=== PATIENT | female | born 1985 | race Hispanic/Latino ===

== ENCOUNTER 2024-12-16 11:04 | Observation (INO) ==
[2024-12-16] MEDS ORDERED: 0.9 % SODIUM CHLORIDE 1000 ML 1,000 ML IV ONE (11:12)
[2024-12-16] MEDS: 0.9 % SODIUM CHLORIDE 1000 ML 1,000 ML IV STA (11:19)
--- NOTE | 2024-12-16 11:25 | Emergency Department Note ---
HPI - Nausea/Vomiting/Diarrhea General Chief complaint: Abdominal Pain Stated complaint: ABD PAIN Time Seen by Provider: 12/16/24 11:14 Source: patient Mode of arrival: ambulance Limitations: no limitations History of Present Illness HPI Narrative: 39-year-old female presents to ER with complaint of nausea vomiting diarrhea x 1 day with new onset stuttering that patient is unable to control. Patient has no other neurological deficits, denies headache, and reports diffuse abdominal pain on palpation of the abdomen. MD elicited complaint: Reports nausea, vomiting, diarrhea, abdominal pain and other (new onset stuttering) Pertinent past history: Reports other (diabetes) Onset (ago): day(s) (1) Description of vomiting: Reports watery Description of diarrhea: Reports watery Associated nausea: Yes Associated abdominal pain: Yes Location of pain: Reports diffuse Radiation: Reports diffuse Pain consistency: Reports constant Severity: moderate Quality: Reports cramping, aching, sharp and constant Exacerbating factors: Reports eating, vomiting, movement, standing and exertion Relieving factors: Reports none Context: Reports new medication Associated symptoms: Reports myalgias, loss of appetite, malaise, nausea /vomiting, weakness, anxiety and other (abdominal pain, stuttering) Treatment prior to arrival: Reports none Related Data Home Medications Medication Instructions Recorded Confirmed glimepiride 2 mg tablet 2 mg PO BIDWM 12/16/24 12/16/24 metformin 500 mg tablet,extended 1,000 mg PO DAILY 12/16/24 12/16/24 release 24 hr pioglitazone 30 mg tablet 30 mg PO DAILY 12/16/24 12/16/24 Allergies Allergy/AdvReac Type Severity Reaction Status Date / Time Penicillins Allergy Verified 12/16/24 14:22 Review of Systems Status of ROS 10 or more systems reviewed and unremark able except as noted in history and below Constitutional Reports: fatigue; Denies: fever, chills, change in weight, malaise, night sweats, change in sleep pattern or other Eyes Denies: change in vision, blurry vision, blind spots, light sensitivity, eye discomfort, eye discharge, dry eyes, increased production of tears, floaters, seeing flashes or decreased night vision Ears, nose, mouth, and throat Denies: throat pain, neck pain, throat swelling, difficulty swallowing, hoarseness, mouth pain, swelling of lips/tongue, dry mouth, bad breath, ear pain, ear discharge, change in hearing, tinnitus, vertigo, nasal discharge, nasal congestion, nose bleeds or post nasal drip Cardiovascular Denies: chest pain, palpitations, edema, swelling of feet/ankles, lightheadedness, shortness of breath with exertion, shortness of breath when lying down, leg pain with exertion or bluish discoloration of hands/feet Respiratory Denies: shortness of breath, cough, wheezing, stridor, pain on inspiration, change in phlegm color, coughing up blood or chest congestion Gastrointestinal Reports: abdominal pain, nausea, vomiting and diarrhea; Denies: coffee grounds in vomit, heartburn, constipation, bloating, belching, excessive passing of gas, difficulty swallowing, feeling full early, change in bowel habits, painful bowel movements, rectal pain, rectal swelling, rectal itching, change in stool character, blood in stool, mucus in stool, white/light colored stool or fatty stool Genitourinary Denies: painful urination, urinary frequency, urinary urgency, urinary incontinence, blood in urine, difficulty voiding, decreased urine ouput, pelvic pain, painful menstruation, vaginal bleeding, vaginal discharge, irregular period, change in menstrual flow, absence of menstruation, genital lesion, genital itching, vaginal dryness, vaginal odor, pain during intercourse, difficulty conceiving or change in libido Musculoskeletal Reports: muscle weakness; Denies: back pain, neck pain, extremity pain, extremity swelling, joint pain, limited range of motion, joint swelling, muscle cramps or loss of height Integumentary/Breast Denies: rash, itching, redness, skin pain, skin tenderness, skin swelling, sores, new lesion, changing lesion, non-healing lesion, changes in skin color, jaundice, stretch jaimes, acne, nail changes, change in hair, breast pain, breast swelling, nipple discharge, breast mass, breast skin changes or change in breast shape Neurological Reports: weakness in extremities; Denies: headache, numbness in extremities, lack of coordination, dizziness, vertigo, confusion, behavioral changes, slurred speech, difficulty communicating thoughts, seizure-like activity or involuntary movements Psychiatric Reports: anxiety; Denies: mood swings, panic attacks, change in sleep pattern, hopelessness, loss of interest, irritability, paranoia, memory loss, difficulty concentrating, visual hallucinations, auditory hallucinations, tactile hallucinations, suicidal ideation or homicidal ideation Endocrine Reports: fatigue; Denies: excessive urination, excessive thirst, cold intolerance, excessive sweating, flushing, heat intolerance, deepening of the voice, change in body appearance or change in libido Hematologic/Lymphatic Denies: easy bruising, easy bleeding or enlarged lymph nodes Allergic/Immunologic Denies: hives, throat swelling, tongue swelling, facial swelling, wheezing, itchy eyes, seasonal allergies or food intolerance PFSH PFSH Medical History (Updated 12/16/24 @ 16:38 by Maria Esther Gerardo NP) Diabetes Social History What is your current living situation: I presently have a place to live Problems where you live: no known problems Highest level of school completed/degree received: high school Feel stressed/tense/nervous/anxious/difficulty sleeping: rather much Life stressors: other (none) Life stressor details: current medical situation Due to disability, difficulty making decisions: No Exam Constitutional: normal general appearance, distress noted (moderate), abnormal body habitus (obese), no limitations and alert Vital Signs - 24 hr 12/16/24 11:13 12/16/24 12:30 12/16/24 13:00 Temperature 98.1 F Pulse Rate 108 H 112 H 92 H Respiratory Rate 20 20 16 Blood Pressure 162/96 139/88 129/85 Pulse Oximetry 96 96 [facility] 12/16/24 13:30 12/16/24 14:00 Temperature Pulse Rate 95 H 94 H Respiratory Rate 16 16 Blood Pressure 141/89 107/72 Pulse Oximetry 96 [facility] HENMT: normocephalic, head/scalp atraumatic, hearing grossly normal bilaterally, external ears normal, external nose normal, oral mucous membranes normal, oropharynx normal, dentition normal and gingiva normal Eyes: PERRL, EOMs intact bilaterally, conjunctivae normal, no scleral icterus, no papilledema, normal visual hodgson by confrontation, alignment normal, periorbital findings normal and no nystagmus Neck/C-Spine: visual inspection normal, trachea midline, cervical spine nontender, cervical full ROM noted and supple Lymph: no lymphadenopathy noted and no lymphedema noted Chest: inspection of chest normal, inspection of breast(s) abnormal (deferred) and palpation of breast(s) abnormal (deferred) Respiratory: breath sounds equal bilaterally, normal respiratory effort, clear to auscultation bilaterally, no wheezes, no rales, no retractions and no use of accessory muscles Cardiovascular: normal heart rate noted, regular rhythm noted, no gallop, no JVD, peripheral pulses 2+ throughout and no additional abnormal heart sounds Gastrointestinal: abdomen normal to inspection, abdomen soft to palpation, tender to palpation (diffuse) (moderate), nondistended, normoactive bowel sounds, no hepatosplenomegaly, no masses, no pulsatile mass, no ascites, no hernia and rectal exam abnormal (deferred) Genitourinary: no CVA tenderness, bladder normal to palpation, vaginal abnormality noted (deferred) and cervical abnormality noted (deferred) Back/Pelvis: spine normal to inspection Extremities: normal to inspection, normal to palpation, no tenderness, full ROM, no joint enlargement and no deformity Neurology: property specialist II-XII intact, no movement abnormality noted, no focal motor deficit noted, no sensory deficits noted, gait normal, speech normal, coordination normal, no pronator drift noted, no fasciculations noted and GCS normal Patient has new onset stuttering which family reports she has never had before. Psychiatry: Mental Status Exam documented within this Exam's Psych section mental status grossly normal, oriented x3, thought process normal, cooperative, affect normal, psychomotor activity normal and memory normal Feel stressed/tense/nervous/anxious/difficulty sleeping: rather much Life stressors: other (none) Life stressor details: current medical situation Due to disability, difficulty making decisions: No Skin: skin color abnormal Reports (pale), no rash, no lesions, no ecchymosis noted, no wounds, no lacerations, skin turgor normal, no jaundice, no petechiae, no mottling, nails normal and no alopecia Course Course Hospital Course: 39-year-old female that presented to ER via EMS with complaint of nausea vomiting and diarrhea x 1 day with new onset stuttering which began approximately 20 minutes prior to arrival in ER has been evaluated by physical exam, CBC, CMP, urinalysis, magnesium, urine drug screen, swabs for flu and COVID, CT of the brain, CT of the abdomen pelvis with contrast, and plain film chest x-ray with results as noted in charting. Patient's lab work reveals patient to be hyperglycemic with a One Touch glucose reading of 309 mg/[place], elevated liver functions with AST of 42 and ALT of 66, hyponatremia with a sodium of 135, leukocytosis with a white count of 12.1, patient's CT of the head reveals no acute intercranial issue, patient's chest x-ray shows no acute cardiopulmonary process, and patient CT abdomen pelvis shows gastroenteritis. Patient will be admitted to the [facility] floor for intractable nausea and vomiting, hyperglycemia, elevated liver function test, hyponatremia, and leukocytosis with rehydration with normal saline, nausea and vomiting control, and antibiotic therapy for leukocytosis. Patient and family have been advised of treatment pathway and agree with it at this time. Vital Signs Vital signs: Vital Signs Temperature 98.1 F 12/16/24 11:13 Pulse Rate 108 H 12/16/24 11:13 Respiratory Rate 20 12/16/24 11:13 Blood Pressure 162/96 12/16/24 11:13 Pulse Oximetry 96 12/16/24 11:13 Oxygen Delivery Method Room Air 12/16/24 11:13 Temperature 98.5 F 12/16/24 23:59 Pulse Rate 104 H 12/16/24 23:59 Respiratory Rate 18 12/16/24 23:59 Blood Pressure 127/51 12/16/24 23:59 Pulse Oximetry 97 12/16/24 23:59 Oxygen Delivery Method Room Air 12/16/24 23:59 Discharge Plan Discharge Patient Disposition: Admitted As Observation Condition: Improved Clinical Impression: Gastroenteritis, Abdominal pain, Intractable vomiting with nausea, Hyperglycemia, Leukocytosis, Elevated liver function tests, Hyponatremia Interventions: ED Discharge Assessment Last Done: 12/16/24 14:55 ED Discharge Vital Sign Last Done: 12/16/24 14:55 Emergency Department Charge Sheet Last Done: 12/16/24 14:55 Time of Disposition: 13:30 Discharge Date/Time: 12/16/24 14:55
[2024-12-16 11:32] LABS: Basophils%(Percent) Auto 0.3 (0.1-0.85); Eosinophils#(Absolute)Auto 0.2 (0.0-0.2); Eosinophils%(Percent) Auto 1.4 % (0.4-2.8); Granulocytes % - Auto 83.8 % (47.8-71.3); Granulocytes#(Absolute)- Auto 10.1 (2.3-6.0); Hematocrit 40.1 % (35.9-46.7); Monocytes #(Absolute)- Auto 0.6 (1.1-3.1); Monocytes %(Percent)- Auto 5.1 % (3.6-9.8); Platelet Count 327 K/uL (152-353); White Blood Count 12.1 K/uL (4.3-9.3)
[2024-12-16 11:57] LABS: Potassium 4.4 mmol/L (3.6-5.2)
[2024-12-16 11:59] LABS: Urine Appearance CLEAR (CLEAR); Urine Color YELLOW (STRAW/YELL.)
[2024-12-16 12:00] LABS: Urine Blood 4+ (NEG - TRACE); Urine Urobilinogen Normal (NORMAL)
[2024-12-16] MEDS ORDERED: MAGNESIUM SULFATE 1 GM/2 ML VIAL ONE (12:01)
[2024-12-16 12:02] LABS: Urine Amorphous Sediment Negative (Negative); Urine Yeast Negative (Negative)
[2024-12-16] MEDS ORDERED: 0.9 % SODIUM CHLORIDE 100ML 100 ML IV ONE (12:03)
[2024-12-16] MEDS: MAGNESIUM SULFATE 1 GM/2 ML 1 GM in 0.9 % SODIUM CHLORIDE 100ML 100 ML IV ONE (12:05)
[2024-12-16 13:09] LABS: Amphetamine Screen Urine NEG. (NEGATIVE); Cannabinoid Screen Urine NEG. (NEGATIVE); Cocaine Screen Urine NEG. (NEGATIVE); Methadone Screen Urine NEG. (NEGATIVE); Opiate Screen Urine NEG. (NEGATIVE)
[2024-12-16] MEDS ORDERED: DOCUSATE SODIUM 100 MG CAPSULE PO PRN (14:22)
[2024-12-16] MEDS ORDERED: ACETAMINOPHEN 500 MG TABLET PO PRN (14:22)
[2024-12-16] MEDS: 0.9 % SODIUM CHLORIDE 1000 ML 1,000 ML IV SCH (15:12)
[2024-12-16] MEDS: ONDANSETRON HCL/PF 4 MG/2 ML VIAL IVP ONE (15:57)
--- NOTE | 2024-12-16 16:35 | History & Physical Report ---
H&P: HPI History of Present Illness Chief complaint: HYPERGLYCEMIA,GASTROENTERITIS,INTRACTABLE N/V, NATHALIA Narrative: 39 year old female here for n/v/d x 1 day. She reports >10 bowel movements today that were water mixed with solid. She has some pain across the upper abdomen. States she took Ozempic for first time this week and thinks it is causing symptoms. She was on it several months ago and had same problems at that time. Deneis headache, dizziness, chest pain, cough, sob, fever, chills, night sweats. Review of Systems Constitutional Reports: fatigue; Denies: fever, chills, change in weight, malaise, night sweats, change in sleep pattern or other Eyes Denies: change in vision, blurry vision, blind spots, light sensitivity, eye discomfort, eye discharge, dry eyes, increased production of tears, floaters, seeing flashes or decreased night vision Ears, nose, mouth, and throat Denies: throat pain, neck pain, throat swelling, difficulty swallowing, hoarseness, mouth pain, swelling of lips/tongue, dry mouth, bad breath, ear pain, ear discharge, change in hearing, tinnitus, vertigo, nasal discharge, nasal congestion, nose bleeds or post nasal drip Cardiovascular Denies: chest pain, palpitations, edema, swelling of feet/ankles, lightheadedness, shortness of breath with exertion, shortness of breath when lying down, leg pain with exertion or bluish discoloration of hands/feet Respiratory Denies: shortness of breath, cough, wheezing, stridor, pain on inspiration, change in phlegm color, coughing up blood or chest congestion Gastrointestinal Reports: abdominal pain, nausea, vomiting and diarrhea; Denies: coffee grounds in vomit, heartburn, constipation, bloating, belching, excessive passing of gas, difficulty swallowing, feeling full early, change in bowel habits, painful bowel movements, rectal pain, rectal swelling, rectal itching, change in stool character, blood in stool, mucus in stool, white/light colored stool or fatty stool Genitourinary Denies: painful urination, urinary frequency, urinary urgency, urinary incontinence, blood in urine, difficulty voiding, decreased urine ouput, pelvic pain, painful menstruation, vaginal bleeding, vaginal discharge, irregular period, change in menstrual flow, absence of menstruation, genital lesion, genital itching, vaginal dryness, vaginal odor, pain during intercourse, difficulty conceiving or change in libido Musculoskeletal Reports: muscle weakness; Denies: back pain, neck pain, extremity pain, extremity swelling, joint pain, limited range of motion, joint swelling, muscle cramps or loss of height Integumentary/Breast Denies: rash, itching, redness, skin pain, skin tenderness, skin swelling, sores, new lesion, changing lesion, non-healing lesion, changes in skin color, jaundice, stretch jaimes, acne, nail changes, change in hair, breast pain, breast swelling, nipple discharge, breast mass, breast skin changes or change in breast shape Neurological Reports: weakness in extremities; Denies: headache, numbness in extremities, lack of coordination, dizziness, vertigo, confusion, behavioral changes, slurred speech, difficulty communicating thoughts, seizure-like activity or involuntary movements Psychiatric Reports: anxiety; Denies: mood swings, panic attacks, change in sleep pattern, hopelessness, loss of interest, irritability, paranoia, memory loss, difficulty concentrating, visual hallucinations, auditory hallucinations, tactile hallucinations, suicidal ideation or homicidal ideation Endocrine Reports: fatigue; Denies: excessive urination, excessive thirst, cold intolerance, excessive sweating, flushing, heat intolerance, deepening of the voice, change in body appearance or change in libido Hematologic/Lymphatic Denies: easy bruising, easy bleeding or enlarged lymph nodes Allergic/Immunologic Denies: hives, throat swelling, tongue swelling, facial swelling, wheezing, itchy eyes, seasonal allergies or food intolerance [facility] Medical History (Updated 12/16/24 @ 16:38 by Maria Esther Gerardo NP) Diabetes Social History What is your current living situation: I presently have a place to live Problems where you live: no known problems Highest level of school completed/degree received: high school Feel stressed/tense/nervous/anxious/difficulty sleeping: rather much Life stressors: other (none) Life stressor details: current medical situation Due to disability, difficulty making decisions: No Meds Home Medications and Allergies Allergies Allergy/AdvReac Type Severity Reaction Status Date / Time Penicillins Allergy Verified 12/16/24 14:22 Exam Constitutional: normal general appearance, no apparent distress, average body habitus and no limitations Vital Signs - 24 hr 04/18/25 11:13 12/16/24 12:30 12/16/24 13:00 Temperature 98.1 F Pulse Rate 108 H 112 H 92 H Pulse Rate [Right Brachial] Respiratory Rate 20 20 16 Blood Pressure 162/96 139/88 129/85 Blood Pressure [Ri ght Arm] Pulse Oximetry 96 96 96 Oxygen Delivery Me thod Room Air Room Air 12/16/24 13:30 12/16/24 14:00 12/16/24 14:55 Temperature 98.1 F Pulse Rate 95 H 94 H 94 H Pulse Rate [Right Brachial] Respiratory Rate 16 16 16 Blood Pressure 141/89 107/72 107/72 Blood Pressure [Ri ght Arm] Pulse Oximetry 96 96 96 Oxygen Delivery Me thod Room Air Room Air 12/16/24 15:42 12/16/24 16:14 Temperature 98.5 F 98.4 F Pulse Rate Pulse Rate [Right Brachial] 100 H 101 H Respiratory Rate 19 19 Blood Pressure Blood Pressure [Ri ght Arm] 117/74 113/74 Pulse Oximetry 95 97 Oxygen Delivery Me thod Room Air Room Air HENMT: normocephalic and head/scalp atraumatic Eyes: EOMs intact bilaterally, conjunctivae normal and no scleral icterus Neck/C-Spine: visual inspection normal Lymph: no lymphadenopathy noted and no lymphedema noted Chest: inspection of chest normal Respiratory: breath sounds equal bilaterally, normal respiratory effort, clear to auscultation bilaterally, no wheezes, no rales, no retractions and no use of accessory muscles Cardiovascular: normal heart rate noted, regular rhythm noted, no gallop, no rub, no murmur and no JVD Gastrointestinal: abdomen normal to inspection, abdomen soft to palpation and nontender to palpation Back/Pelvis: spine normal to inspection and no thoracic spine tenderness Extremities: normal to inspection, normal to palpation, no tenderness, full ROM and no joint enlargement Neurology: timber sizer II-XII intact, no movement abnormality noted, speech normal and coordination normal Psychiatry: mental status grossly normal, oriented x3, thought process normal, cooperative and affect normal Skin: skin color normal, no rash and no lesions Assessment and Plan Assessment and Plan (1) Nausea: Code(s): R11.0 - Nausea (2) Vomiting: Qualifiers: Nausea presence: with nausea Vomiting type: unspecified Qualified Code(s): R11.2 - Nausea with vomiting, unspecified Code(s): R11.10 - Vomiting, unspecified (3) Diarrhea: Qualifiers: Diarrhea type: unspecified type Qualified Code(s): R19.7 - Diarrhea, unspecified Code(s): R19.7 - Diarrhea, unspecified (4) Transaminitis: Code(s): R74.01 - Elevation of levels of liver transaminase levels (5) Diabetes: Qualifiers: Diabetes mellitus complication status: without complication Diabetes mellitus rn long term care insulin use: without penitentiary use Diabetes mellitus type: type 2 Qualified Code(s): E11.9 - Type 2 diabetes mellitus without compl ications Code(s): E11.9 - Type 2 diabetes mellitus without complications Plan Continue IV Fluid rehydration OTBS with SSI AC/HS CBC, CMP in am Enoxaparin Zofran prn for nausea Protonix Morphine prn for pain Results Labs Labs: CBC 12/16/24 Range/Units 11:20 WBC 12.1 H (4.3-9.3) K/uL RBC 4.8 (4.00-5.50) M/uL Hgb 13.2 (12.5-15.8) gm/dL Hct 40.1 (35.9-46.7) % Plt Count 327 (152-353) K/uL Gran % 83.8 H (47.8-71.3) % Lymph % (Auto) 9.4 L (20.0-43.0) % [place] % (Auto) 5.1 (3.6-9.8) % Eos % (Auto) 1.4 (0.4-2.8) % Baso % (Auto) 0.3 (0.1-0.85) Lymph # (Auto) 1.1 (1.1-3.1) [place] # (Auto) 0.6 L (1.1-3.1) Eos # (Auto) 0.2 (0.0-0.2) Baso # (Auto) 0.0 (0.0-0.1) Absolute Gran (auto) 10.1 H (2.3-6.0) CMP 12/16/24 11:20 Sodium 135 L Potassium 4.4 Chloride 101.0 Carbon Dioxide 25 BUN 12 Creatinine 0.8 Glucose 290 H Calcium 8.7 Liver Function 12/16/24 Range/Units 11:20 Total Bilirubin 0.43 (0.0-1.0) mg/dL AST 42 H (15-37) U/L ALT 66 H (30-65) U/L Alkaline Phosphatase 99 (50-136) U/L Albumin 3.0 L (3.4-5.0) g/dL Urine 12/16/24 11:53 Urine Color Yellow Urine Appearance Clear Ur Specific [place] 1.020 Urine Protein 2+ Urine Glucose (UA) 3+
[2024-12-16] MEDS: PANTOPRAZOLE SODIUM 40 MG VIAL IVP SCH (16:40)
[2024-12-16] MEDS: KETOROLAC 30 MG/ML INJ VIAL IVP PRN (17:54)
[2024-12-16] MEDS: PROMETHAZINE HCL 25 MG in 0.9 % SODIUM CHLORIDE 50 ML IV PRN (21:58)
[2024-12-17] MEDS: ONDANSETRON HCL/PF 4 MG/2 ML VIAL INJ PRN (01:33)
[2024-12-17] MEDS: MORPHINE SULFATE 4 MG/ML CARTRIDGE IV PRN (01:34)
[2024-12-17 05:51] LABS: Basophils%(Percent) Auto 0.5 (0.1-0.85); Eosinophils#(Absolute)Auto 0.2 (0.0-0.2); Eosinophils%(Percent) Auto 2.3 % (0.4-2.8); Granulocytes % - Auto 72.5 % (47.8-71.3); Granulocytes#(Absolute)- Auto 5.9 (2.3-6.0); Hematocrit 36.4 % (35.9-46.7); Mean Corpuscular Volume 83.8 fl (81.0-93.7); Monocytes #(Absolute)- Auto 0.5 (1.1-3.1); Platelet Count 240 K/uL (152-353); White Blood Count 8.2 K/uL (4.3-9.3)
[2024-12-17] MEDS: ENOXAPARIN SODIUM 40 MG/0.4 ML SYRINGE SUBQ SCH (08:13)
[2024-12-17] MEDS: diphenhydrAMINE HCL 50 MG/ML VIAL INJ PRN (12:05)
[2024-12-17] MEDS: LORazepam 0.5 MG TABLET PO PRN (12:05)
--- NOTE | 2024-12-17 12:51 | Progress Note ---
Progress Note: Subjective Subjective Interval history: Patient states she is having loose stools still. She is having episode of stuttering which is new. Continued upper abdominal pain. Continued nausea. At 1300 patient complained of chest pain, sob while having stuttering episode. Workup negative. AU consulted. New orders noted.. Exam Exam: stuttering words, no neurological deficit identified. Constitutional: normal general appearance, no apparent distress, average body habitus, no limitations and alert Vital Signs - 24 hr 12/16/24 13:00 12/16/24 13:30 12/16/24 14:00 Temperature Pulse Rate 92 H 95 H 94 H Pulse Rate [Right Brachial] Respiratory Rate 16 16 16 Blood Pressure 129/85 141/89 107/72 Blood Pressure [Ri ght Arm] Pulse Oximetry 96 96 96 Oxygen Delivery Dc thod Room Air Room Air Room Air 12/16/24 14:55 12/16/24 15:42 12/16/24 16:14 Temperature 98.1 F 98.5 F 98.4 F Pulse Rate 94 H Pulse Rate [Right Brachial] 100 H 101 H Respiratory Rate 16 19 19 Blood Pressure 107/72 Blood Pressure [Ri ght Arm] 117/74 113/74 Pulse Oximetry 96 95 97 Oxygen Delivery Dc thod Room Air Room Air 12/16/24 19:47 12/16/24 23:59 12/17/24 04:10 Temperature 98.5 F 98.5 F 97.9 F Pulse Rate Pulse Rate [Right Brachial] 98 H 104 H 68 Respiratory Rate 17 18 18 Blood Pressure Blood Pressure [Ri ght Arm] 103/57 127/51 105/58 Pulse Oximetry 95 97 97 Oxygen Delivery Dc thod Room Air Room Air Room Air 12/17/24 08:00 12/17/24 11:51 Temperature 97.6 F 97.8 F Pulse Rate Pulse Rate [Right Brachial] 118 H 101 H Respiratory Rate 19 19 Blood Pressure Blood Pressure [Ri ght Arm] 133/80 126/69 Pulse Oximetry 95 95 [facility] Air HENMT: normocephalic, head/scalp atraumatic, hearing grossly normal bilaterally, external ears normal, external nose normal, oral mucous membranes normal, oropharynx normal, dentition normal and gingiva normal Eyes: PERRL, EOMs intact bilaterally, conjunctivae normal, no scleral icterus, no papilledema, normal visual hodgson by confrontation, alignment normal, periorbital findings normal and no nystagmus Neck/C-Spine: visual inspection normal, trachea midline, cervical spine nontender, cervical full ROM noted and supple Lymph: no lymphadenopathy noted and no lymphedema noted Chest: inspection of chest normal, inspection of breast(s) abnormal (deferred) and palpation of breast(s) abnormal (deferred) Respiratory: breath sounds equal bilaterally, normal respiratory effort, clear to auscultation bilaterally, no wheezes, no rales, no retractions and no use of accessory muscles Cardiovascular: normal heart rate noted, regular rhythm noted, no gallop, no rub, no murmur, no JVD, peripheral pulses 2+ throughout and no additional abnormal heart sounds Gastrointestinal: abdomen normal to inspection, abdomen soft to palpation, nontender to palpation, nondistended, normoactive bowel sounds, no hepat osplenomegaly, no masses, no pulsatile mass, no ascites, no hernia and rectal exam abnormal (deferred) Genitourinary: no CVA tenderness, bladder normal to palpation, vaginal abnormality noted (deferred) and cervical abnormality noted (deferred) Back/Pelvis: spine normal to inspection and no thoracic spine tenderness Extremities: normal to inspection, normal to palpation, no tenderness, full ROM, no joint enlargement and no deformity Neurology: press supervisor II-XII intact, no movement abnormality noted, no focal motor deficit noted, no sensory deficits noted, gait normal, speech normal (stuttering witnessed.), coordination normal, no pronator drift noted, no fasciculations noted and GCS normal Patient has new onset stuttering which family reports she has never had before. Psychiatry: Mental Status Exam documented within this Exam's Psych section mental status grossly normal, oriented x3, thought process normal, cooperative, affect normal, psychomotor activity normal and memory normal Skin: skin color normal, no rash, no lesions, no ecchymosis noted, no wounds, no lacerations, skin turgor normal, no jaundice, no petechiae, no mottling, nails normal and no alopecia Progress Note: Objective Labs Labs: CBC 12/17/24 Range/Units 05:30 WBC 8.2 (4.3-9.3) K/uL RBC 4.3 (4.00-5.50) M/uL Hgb 11.9 L (12.5-15.8) gm/dL Hct 36.4 (35.9-46.7) % Plt Count 240 (152-353) K/uL Gran % 72.5 H (47.8-71.3) % Lymph % (Auto) 18.7 L (20.0-43.0) % [place] % (Auto) 6.0 (3.6-9.8) % Eos % (Auto) 2.3 (0.4-2.8) % Baso % (Auto) 0.5 (0.1-0.85) Lymph # (Auto) 1.5 (1.1-3.1) Maries # (Auto) 0.5 L (1.1-3.1) Eos # (Auto) 0.2 (0.0-0.2) Baso # (Auto) 0.0 (0.0-0.1) Absolute Gran (auto) 5.9 (2.3-6.0) CMP 12/17/24 05:30 Sodium 139 Potassium 4.0 Chloride 107.0 Carbon Dioxide 27 BUN 13 Creatinine 0.8 Glucose 242 H Calcium 8.1 L Liver Function 12/17/24 Range/Units 05:30 Total Bilirubin 0.42 (0.0-1.0) mg/dL AST 33 (15-37) U/L ALT 53 (30-65) U/L Alkaline Phosphatase 84 (50-136) U/L Albumin 2.6 L (3.4-5.0) g/dL Urine 12/16/24 11:53 Urine Color Yellow Urine Appearance Clear Ur Specific [place] 1.020 Urine Protein 2+ Urine Glucose (UA) 3+ ABG ABG results: normal Attestation: I personally reviewed and interpreted this ABG as follows: Pulse Oximetry SpO2 results: 94 Attestation: I personally reviewed and interpreted this pulse oximetry as follows: ECG Attestation: I personally reviewed and interpreted this ECG as follows: (NSR) Prior ECG tracings: available for review Progress Note: A&P Assessment and Plan (1) Nausea: (2) Vomiting: Qualifiers: Vomiting type: unspecified Nausea presence: with nausea Qualified Code(s): R11.2 - Nausea with vomiting, unspecified (3) Diarrhea: Qualifiers: Diarrhea type: unspecified type Qualified Code(s): R19.7 - Diarrhea, unspecified (4) Transaminitis: Assessment and Plan: REsolved (5) Diabetes: Qualifiers: Diabetes mellitus type: type 2 Diabetes mellitus oil heaterman insulin use: without oil heaterman use Diabetes mellitus complication status: without complication Qualified Code(s): E11.9 - Type 2 diabetes mellitus without complications (6) Dystonia: Plan Dystonic reaction - Stuttering witness today. Patient had one dose of promethazine last night about 10 pm. No obvious neurological deficit. Likely Dystonic reaction. Stopped promethazine. Started Benadryl and Ativan PRN. Will monitor and if no improvement will send to [facility] for evaluation. Continue IV Fluid rehydration OTBS with SSI AC/HS CBC, CMP in am Enoxaparin Zofran prn for nausea Protonix Morphine prn for pain UPDATE: Patient complained with chest pain and sob while having a stuttering episode about 1300 this afternoon. Repeated CXR, Labs, obtained troponin, ABG and workup was negative. Of note transaminitis resolved on labs. [facility] critical care provider consulted. Ordered Haldol. Thinking Ozempic is root cause of symptoms and that the stuttering is phsychosomatic secondary to pain. Will discontinue the Ativan and Benadryl at this time. Will admin Haldol as directed and observe. Fall Risk Details Lynn Fall Scale Risk Level: Low Fall Risk Current Medications: Current Medications Acetaminophen (Acetaminophen 500 Mg Tablet) 500 mg PO Q6H PRN PRN Reason: MILD PAIN SCALE 1-4 Diphenhydramine HCl (Diphenhydramine Hcl 50 Mg/Ml Vial) 25 mg INJ Q6H PRN PRN Reason: Dystonia Last Admin: 12/17/24 12:05 Dose: 25 mg Docusate Sodium (Docusate Sodium 100 Mg Capsule) 100 mg PO DAILY PRN PRN Reason: Constipation Enoxaparin Sodium (Enoxaparin Sodium 40 Mg/0.4 Ml Syringe) 40 mg SUBQ DAILY ABHINAV Last Admin: 12/17/24 08:13 Dose: 40 mg Sodium Chloride (Sodium Chloride) 1,000 mls @ 75 mls/hr IV CONT ABHINAV Last Infusion: 12/17/24 04:24 Dose: 75 mls/hr Insulin Human Regular (Insulin Regular, Human 100 Unit/Ml) 0 unit SUBQ ACHS PRN; Protocol PRN Reason: Blood Sugar - High Last Admin: 12/16/24 16:42 Dose: 4 unit Ketorolac Tromethamine (Ketorolac 30 Mg/Ml Inj Vial) 15 mg IVP Q6H PRN PRN Reason: Moderate Pain SCALE 5-7 Stop: 12/21/24 15:59 Last Admin: 12/17/24 07:49 Dose: 15 mg Lorazepam (Lorazepam 0.5 Mg Tablet) 0.5 mg PO Q8H PRN PRN Reason: Dystonia Last Admin: 12/17/24 12:05 Dose: 0.5 mg Morphine Sulfate (Morphine Sulfate 4 Mg/Ml Cartridge) 4 mg IV Q6H PRN PRN Reason: Severe Pain SCALE 8-10 Last Admin: 12/17/24 11:39 Dose: 4 mg Ondansetron HCl (Ondansetron Hcl/Pf 4 Mg/2 Ml Vial) 4 mg INJ Q6H PRN PRN Reason: Nausea And Vomiting Last Admin: 12/17/24 07:50 Dose: 4 mg Pantoprazole Sodium (Pantoprazole Sodium 40 Mg Vial) 40 mg IVP DAILY ABHINAV Last Admin: 12/17/24 08:13 Dose: 40 mg Time Spent With Patient Time: Total time spent is greater than 50% in coordination of care (as documented) at patient's floor/unit and/or counseling patient:50 Time with patient: greater than 35 minutes
[2024-12-17] MEDS: MORPHINE SULFATE 2 MG/ML CARTRIDGE IV ONE (12:55)
[2024-12-17 13:27] LABS: Base Excess ABG -1.1 mmo1/L (-2-2); Oxygen Saturation ABG 94 % (92-100); PCO2 ABG 38 mmHg (35-45); PO2 ABG 69 mmHg (60-100)
[2024-12-17 14:20] LABS: Potassium 4.3 mmol/L (3.6-5.2)
[2024-12-17 14:32] LABS: Basophils%(Percent) Auto 0.2 (0.1-0.85); Eosinophils#(Absolute)Auto 0.2 (0.0-0.2); Eosinophils%(Percent) Auto 1.8 % (0.4-2.8); Granulocytes % - Auto 75.3 % (47.8-71.3); Granulocytes#(Absolute)- Auto 7.3 (2.3-6.0); Hematocrit 37.5 % (35.9-46.7); Mean Corpuscular Volume 83.8 fl (81.0-93.7); Platelet Count 197 K/uL (152-353); White Blood Count 9.7 K/uL (4.3-9.3)
[2024-12-17] MEDS: HALOPERIDOL LACTATE 5 MG/ML VIAL IVP ONE (15:31)
[2024-12-17] MEDS: ACETAMINOPHEN 1000 MG/100 ML 1,000 MG/100 ML IV.SOLN IV PRN (23:51)
[2024-12-18 03:46] VITALS: PULSE 94; RESP 18
[2024-12-18 05:13] LABS: Hematocrit 32.5 % (35.9-46.7); White Blood Count 6.7 K/uL (4.3-9.3)
[2024-12-18 05:15] LABS: Basophils%(Percent) Auto 0.3 (0.1-0.85); Eosinophils#(Absolute)Auto 0.2 (0.0-0.2); Eosinophils%(Percent) Auto 2.9 % (0.4-2.8); Granulocytes % - Auto 61.2 % (47.8-71.3); Granulocytes#(Absolute)- Auto 4.1 (2.3-6.0); Mean Corpuscular Volume 83.6 fl (81.0-93.7); Monocytes #(Absolute)- Auto 0.7 (1.1-3.1); Monocytes %(Percent)- Auto 11.2 % (3.6-9.8); Platelet Count 187 K/uL (152-353)
--- NOTE | 2024-12-18 08:41 | Discharge Summary ---
DS: Providers Provider Date of admission: 12/16/24 14:32 Primary care physician: Cal Garnett NP Attending physician on discharge: Maria Esther Gerardo Discharging clinician: Maria Esther Gerardo Anticipated date of discharge: 12/18/24 DS: Diagnosis Discharge Diagnosis (1) Nausea: (2) Vomiting: Qualifiers: Vomiting type: unspecified Nausea presence: with nausea Qualified Code(s): R11.2 - Nausea with vomiting, unspecified (3) Diarrhea: Qualifiers: Diarrhea type: unspecified type Qualified Code(s): R19.7 - Diarrhea, unspecified (4) Transaminitis: (5) Diabetes: Qualifiers: Diabetes mellitus type: type 2 Diabetes mellitus truck terminal manager insulin use: without truck terminal manager use Diabetes mellitus complication status: without complication Qualified Code(s): E11.9 - Type 2 diabetes mellitus without complications (6) Dystonia: Plan Patient improved this morning and ready to discharge home. She had Haldol last evening and states abdominal pain are gone. She continues to have loose stool which is likely response to the Ozempic. She will not use Ozempic again. She will follow up with her PCP within 1 week. DS: Summary Hospital Course Hospital Course: 39-year-old female that presented to ER via EMS with complaint of nausea vomiting and diarrhea x 1 day with new onset stuttering which began approximately 20 minutes prior to arrival in ER has been evaluated by physical exam, CBC, CMP, urinalysis, magnesium, urine drug screen, swabs for flu and COVID, CT of the brain, CT of the abdomen pelvis with contrast, and plain film chest x-ray with results as noted in charting. Patient's lab work reveals pat ient to be hyperglycemic with a One Touch glucose reading of 309 mg/[place], elevated liver functions with AST of 42 and ALT of 66, hyponatremia with a sodium of 135, leukocytosis with a white count of 12.1, patient's CT of the head reveals no acute intercranial issue, patient's chest x-ray shows no acute cardiopulmonary process, and patient CT abdomen pelvis shows gastroenteritis. Patient will be admitted to the [facility] floor for intractable nausea and vomiting, hyperglycemia, elevated liver function test, hyponatremia, and leukocytosis with rehydration with normal saline, nausea and vomiting control, and antibiotic therapy for leukocytosis. Patient and family have been advised of treatment pathway and agree with it at this time. Patient developed dystonia with stuttering following a dose of promethazine. It was discharged and she was given Haldol. All symptoms to include nausea, abdominal pain and stuttering resolved. She feels good today. Status at Discharge Functional status at discharge: independent ambulation Overall status at discharge: patient is back to baseline Time Spent with Patient Time attestation: Total time spent providing and/or coordinating discharge services:45 Time spent: greater than 30 minutes Exam Constitutional: normal general appearance, no apparent distress, average body habitus and no limitations Vital Signs - 24 hr 12/17/24 11:51 12/17/24 16:00 12/17/24 20:00 Temperature 97.8 F 98.6 F 98.6 F Pulse Rate [Right Brachial] 101 H 100 H 109 H Respiratory Rate 19 19 16 Blood Pressure [Ri ght Arm] 126/69 118/71 112/56 Pulse Oximetry 95 92 L 96 Oxygen Delivery Me thod Room Air Room Air Room Air 12/17/24 23:50 12/18/24 01:14 12/18/24 01:45 Temperature 101.8 F H 100.0 F H 98.5 F Pulse Rate [Right Brachial] 113 H Respiratory Rate 19 Blood Pressure [Ri ght Arm] 102/58 Pulse Oximetry 95 Oxygen Delivery Me thod Room Air 12/18/24 03:44 12/18/24 06:15 Temperature 98.2 F 97.5 F L Pulse Rate [Right Brachial] 94 H Respiratory Rate 18 Blood Pressure [Ri ght Arm] 85/41 Pulse Oximetry 96 Oxygen Delivery Me thod Room Air HENMT: normocephalic and head/scalp atraumatic Eyes: PERRL, EOMs intact bilaterally, conjunctivae normal and no scleral icterus Neck/C-Spine: visual inspection normal and trachea midline Lymph: no lymphadenopathy noted and no lymphedema noted Chest: inspection of chest normal Respiratory: breath sounds equal bilaterally, normal respiratory effort, clear to auscultation bilaterally, no wheezes, no rales, no retractions and no use of accessory muscles Cardiovascular: normal heart rate noted, regular rhythm noted, no gallop, no rub, no murmur and no JVD Gastrointestinal: abdomen normal to inspection, abdomen soft to palpation, nontender to palpation and normoactive bowel sounds Genitourinary: deferred Extremities: normal to inspection, normal to palpation, no tenderness and full ROM Neurology: no movement abnormality noted, gait normal, speech normal, coordination normal and no fasciculations noted Psychiatry: mental status grossly normal, oriented x3, thought process normal, cooperative, affect normal and memory normal Skin: skin color normal, no rash and no lesions DS: Data Data Completed and Pending Labs on day of discharge: Labs from last 24 hours 12/18/24 12/17/24 12/17/24 04:50 18:16 14:14 WBC 6.7 9.7 H RBC 3.9 L 4.5 Hgb 10.6 L 12.2 L Hct 32.5 L 37.5 MCV 83.6 83.8 MCH 27.3 L 27.2 L MCHC 32.7 L 32.4 L RDW 15.7 H 16.0 H Plt Count 187 197 MPV 9.4 11.3 H Gran % 61.2 75.3 H Lymph % (Auto) 24.4 12.7 L [place] % (Auto) 11.2 H 10.0 H Eos % (Auto) 2.9 H 1.8 Baso % (Auto) 0.3 0.2 Lymph # (Auto) 1.6 1.2 [place] # (Auto) 0.7 L 1.0 L Eos # (Auto) 0.2 0.2 Baso # (Auto) 0.0 0.0 Absolute Gran (auto) 4.1 7.3 H ABG pH ABG pCO2 ABG pO2 ABG PO2/FiO2 Ratio ABG HCO3 ABG Total CO2 ABG O2 Saturation ABG Base Excess A-a O2 Gradient Respiratory Index FiO2 Sodium 139 Potassium 4.3 Chloride 106.0 Carbon Dioxide 24 Anion Gap 9.0 BUN 14 Creatinine 0.8 Estimated GFR 96.1 Glucose 232 H Calcium 8.4 L Total Bilirubin 0.44 AST 31 ALT 56 Alkaline Phosphatase 92 Troponin I High Sens Total Protein 7.1 Albumin 3.0 L C. difficile Screen Negative C. difficile GDH Ag Negative 12/17/24 12/17/24 12/17/24 13:12 13:00 13:00 WBC RBC Hgb Hct MCV MCH MCHC RDW Plt Count MPV Gran % Lymph % (Auto) [place] % (Auto) Eos % (Auto) Baso % (Auto) Lymph # (Auto) [place] # (Auto) Eos # (Auto) Baso # (Auto) Absolute Gran (auto) ABG pH 7.40 ABG pCO2 38 ABG pO2 102 69 ABG PO2/FiO2 Ratio 0.68 ABG HCO3 23.5 ABG Total CO2 24.7 ABG O2 Saturation 94 ABG Base Excess -1.1 A-a O2 Gradient 33 Respiratory Index 0.5 FiO2 21 Sodium Potassium Chloride Carbon Dioxide Anion Gap BUN Creatinine Estimated GFR Glucose Calcium Total Bilirubin AST ALT Alkaline Phosphatase Troponin I High Sens 5.00 Total Protein Albumin C. difficile Screen C. difficile [facility] Ag Discharge Plan Discharge Disposition: Home, Self-Care Condition: Improved Discharge Medications: Continued glimepiride 2 mg tablet 2 mg PO BIDWM metformin 500 mg tablet extended release 24 hr 1,000 mg PO DAILY pioglitazone 30 mg tablet 30 mg PO DAILY Discharge Orders: Discharge Order (Routine); Ordered 12/18/24 Ordered By: Maria Esther Gerardo Activity: increase activity as tolerated and resume usual activities as tolerated Diet: advance to your usual diet Plan of Treatment: Discharge home. Follow up with PCP in 1 week. Patient Instructions: Diabetic Hyperglycemia (ED), Diabetes and Exercise (ED) Activity Restrictions/Additional Instructions: No restrictions Forms: Portal/Health Info Access Inst Follow-Ups: Cal Garnett NP [Primary Care Provider] -
[2024-12-18 08:53] VITALS: BP 99/59; TEMP 98.4
== END 2024-12-18 09:20 | disposition home or self-care (01) ==
LOC: MS 11:04 → ED 11:04 → MS 14:55
PROVIDERS: ADMIT Nurse Practitioner Family; ATTEND Nurse Practitioner Family
DX: G24.9 Dystonia, unspecified; R74.01 Elevation of levels of liver transaminase levels; R11.2 Nausea with vomiting, unspecified; E87.1 Hypo-osmolality and hyponatremia; R06.02 Shortness of breath; I70.0 Atherosclerosis of aorta; R07.9 Chest pain, unspecified; Z79.84 Long term (current) use of oral hypoglycemic drugs; E11.65 Type 2 diabetes mellitus with hyperglycemia; R19.7 Diarrhea, unspecified; Z79.85 Long-term (current) use of injectable non-insulin antidiabetic drugs; Z88.0 Allergy status to penicillin